=== PATIENT | female | born 1985 | race Caucasian/White ===

== ENCOUNTER 2020-09-28 13:48 | Emergency (ER) | payer SELFPAY ==
[2020-09-28] MEDS ORDERED: Sodium Chloride 0.9% 1,000 ML IV ONE (14:59)
[2020-09-28] MEDS ORDERED: Sodium Chloride 0.9% 10 ML Syringe FLUSH PRN ×2 (14:59→15:16)
--- NOTE | 2020-09-28 15:02 | EDM.PDOC ---
ED HPI GENERAL MEDICAL PROBLEM - General Chief Complaint: Respiratory Problem Stated Complaint: SHORTNESS OF BREATH Time Seen by Provider: 09/28/20 14:56 Source of Information: Reports: Patient, RN Notes Reviewed History Limitations: Reports: No Limitations - History of Present Illness INITIAL COMMENTS - FREE TEXT/NARRATIVE: 34-year-old female presents emergency department a complaint of shortness of breath and palpitations, she is postop approximately 11 days gastric bypass which was done in [place] on September 17 initially stayed 4 days after surgery and then flew home, she started feeling short of breath about 2 days prior with palpitations, no fevers no nausea vomiting no chest pain - Related Data Allergies Allergy/AdvReac Type Severity Reaction Status Date / Time No Known Allergies Allergy Verified 09/28/20 14:18 Home Meds: Home Meds Omeprazole 20 mg PO BID 09/28/20 [History] Past Medical History - Past Surgical History GI Surgical History: Reports: Bariatric Procedure Social & Family History - Tobacco Use Tobacco Use Status *Q: Never Tobacco User Second Hand Smoke Exposure: No - Caffeine Use Caffeine Use: Reports: None - Recreational Drug Use Recreational Drug Use: No ED ROS GENERAL - Review of Systems Review Of Systems: See Below Constitutional: Reports: No Symptoms HEENT: Reports: No Symptoms Respiratory: Reports: Shortness of Breath Cardiovascular: Reports: Dyspnea on Exertion, Palpitations GI/Abdominal: Reports: No Symptoms ED EXAM, GENERAL - Physical Exam Exam: See Below Exam Limited By: No Limitations General Appearance: Alert, WD/WN, No Apparent Distress Respiratory/Chest: No Respiratory Distress, Lungs Clear, Normal Breath Sounds, No Accessory Muscle Use, Chest Non-Tender Cardiovascular: No Murmur, Tachycardia GI/Abdominal: Soft, Non-Tender Extremities: No Pedal Edema Course - Vital Signs Last Recorded V/S: Last Vital Signs Temp 97.0 F 09/28/20 14:27 Pulse 115 H 09/28/20 15:21 Resp 15 09/28/20 15:21 BP 122/80 09/28/20 15:21 Pulse Ox 98 09/28/20 15:21 - Orders/Labs/Meds Orders: Active Orders 24 hr Category Date Time Status EKG Documentation Completion [RC] ASDIRECTED Care 09/28/20 15:00 Active Peripheral IV Care [RC] . DIRECTED Care 09/28/20 14:59 Active Iopamidol [Isovue-370 (76%)] Med 09/28/20 15:45 Active 100 ml IV . DIRECTED Sodium Chloride 0.9% [Normal Saline] 1,000 ml Med 09/28/20 14:59 Active IV ASDIRECTED Sodium Chloride 0.9% [Saline Flush] Med 09/28/20 14:59 Active 10 ml FLUSH ASDIRECTED PRN Sodium Chloride 0.9% [Saline Flush] Med 09/28/20 15:16 Active 10 ml FLUSH ONETIME PRN Peripheral IV Insertion Adult [OM.PC] Urgent Oth 09/28/20 14:59 Ordered EKG 12 Lead [EK] Urgent Ther 09/28/20 14:59 Ordered Medication Orders Sodium Chloride (Normal Saline) 1,000 mls @ 500 mls/hr IV ASDIRECTED ONE Stop: 09/28/20 16:58 Last Admin: 09/28/20 15:33 Dose: 500 mls/hr Documented by: PERRY Iopamidol (Isovue-370 (76%)) 100 ml IV . DIRECTED DENNY Last Admin: 09/28/20 15:37 Dose: 100 ml Documented by: [email or web address] Sodium Chloride (Saline Flush) 10 ml FLUSH ASDIRECTED PRN PRN Reason: Keep Vein Open Last Admin: 09/28/20 15:34 Dose: 10 ml Documented by: HENRKYL Sodium Chloride (Saline Flush) 10 ml FLUSH ONETIME PRN PRN Reason: PER RADIOLOGY PROTOCOL Labs: Laboratory Tests 09/28/20 09/28/20 Range/Units 15:14 15:14 WBC 7.5 (4.5-11.0) K/uL RBC 5.83 H (3.30-5.50) M/uL Hgb 16.3 H (12.0-15.0) g/dL Hct 49.5 H (36.0-48.0) % MCV 85 (80-98) fL MCH 28 (27-31) pg MCHC 33 (32-36) % Plt Count 232 (150-400) K/uL Neut % (Auto) 64 (36-66) % Lymph % (Auto) 18 L (24-44) % [place] % (Auto) 10 H (2-6) % Eos % (Auto) 7 H (2-4) % Baso % (Auto) 1 (0-1) % Sodium 136 L (140-148) mmol/L Potassium 3.9 (3.6-5.2) mmol/L Chloride 103 (100-108) mmol/L Carbon Dioxide 13 L (21-32) mmol/L Anion Gap 23.9 H (5.0-14.0) mmol/L BUN 11 (7-18) mg/dL Creatinine 0.7 (0.6-1.0) mg/dL Est Cr Clr Drug Dosing 107.01 mL/min Estimated GFR (MDRD) > 60 (>60) Glucose 78 (74-106) mg/dL Calcium 9.2 (8.5-10.1) mg/dL Total Bilirubin 0.4 (0.2-1.0) mg/dL AST 14 L (15-37) U/L ALT 32 (12-78) U/L Alkaline Phosphatase 67 (46-116) U/L Troponin I < 0.017 (0.000-0.056) ng/mL Total Protein 7.9 (6.4-8.2) g/dL Albumin 3.9 (3.4-5.0) g/dL Globulin 4.0 H (2.3-3.5) g/dL Albumin/Globulin Ratio 1.0 L (1.2-2.2) Meds: Medications Generic Name Dose Route Start Last Admin Trade Name Freq PRN Reason Stop Dose Admin Sodium Chloride 1,000 mls @ 500 mls/hr 09/28/20 14:59 09/28/20 15:33 Normal Saline IV 09/28/20 16:58 500 mls/hr ASDIRECTED ONE Administration Iopamidol 100 ml 09/28/20 15:45 09/28/20 15:37 Isovue-370 (76%) IV 100 ml . DIRECTED DENNY Administration Sodium Chloride 10 ml 09/28/20 14:59 09/28/20 15:34 Saline Flush FLUSH 10 ml ASDIRECTED PRN Administration Keep Vein Open Sodium Chloride 10 ml 09/28/20 15:16 Saline Flush FLUSH ONETIME PRN PER RADIOLOGY PROTOCOL Discontinued Medications Generic Name Dose Route Start Last Admin Trade Name Freq PRN Reason Stop Dose Admin Sodium Chloride 90 mls @ 3 mls/sec 09/28/20 15:16 Normal Saline IV 09/28/20 15:17 ONETIME ONE Iopamidol 85 ml 09/28/20 15:16 Isovue-300 (61%) IV . DIRECTED PRN RADIOLOGY EXAM Departure - Departure Time of Disposition: 16:19 Disposition: Home, Self-Care 01 Condition: Fair Clinical Impression: Dyspnea Qualifiers: Dyspnea type: other forms of dyspnea Qualified Code(s): R06.09 - Other forms of dyspnea - Discharge Information Instructions: Shortness of Breath, Adult, [id number] Referrals: PCP,None [Primary Care Provider] - Forms: ED Department Discharge Additional Instructions: Please followup with your primary care provider in 3-5 days if not better, please call return to the emergency department with worsening of symptoms. Sepsis Event Note (ED) - Evaluation Sepsis Screening Result: No Definite Risk - Focused Exam Vital Signs: Vital Signs Temp Pulse Resp BP Pulse Ox 09/28/20 15:21 115 H 15 122/80 98 09/28/20 14:27 97.0 F 122 H 16 123/75 99 09/28/20 14:14 97.0 F 122 H 16 123/75 99 - My Orders Last 24 Hours: My Active Orders 09/28/20 14:59 Peripheral IV Care [RC] . DIRECTED Sodium Chloride 0.9% [Normal Saline] 1,000 ml IV ASDIRECTED Sodium Chloride 0.9% [Saline Flush] 10 ml FLUSH ASDIRECTED PRN Peripheral IV Insertion Adult [OM.PC] Urgent EKG 12 Lead [EK] Urgent 09/28/20 15:00 EKG Documentation Completion [RC] ASDIRECTED 09/28/20 15:16 Sodium Chloride 0.9% [Saline Flush] 10 ml FLUSH ONETIME PRN 09/28/20 15:45 Iopamidol [Isovue-370 (76%)] 100 ml IV . DIRECTED - Assessment/Plan Last 24 Hours: My Active Orders 09/28/20 14:59 Peripheral IV Care [RC] . DIRECTED Sodium Chloride 0.9% [Normal Saline] 1,000 ml IV ASDIRECTED Sodium Chloride 0.9% [Saline Flush] 10 ml FLUSH ASDIRECTED PRN Peripheral IV Insertion Adult [OM.PC] Urgent EKG 12 Lead [EK] Urgent 09/28/20 15:00 EKG Documentation Completion [RC] ASDIRECTED 09/28/20 15:16 Sodium Chloride 0.9% [Saline Flush] 10 ml FLUSH ONETIME PRN 09/28/20 15:45 Iopamidol [Isovue-370 (76%)] 100 ml IV . DIRECTED Plan: Assessment Acuity = acute Site and laterality = dyspnea and tachycardia Etiology = probably related to anxiety Manifestations = none Location of injury = Home Lab values = CBC, CMP, troponin within normal limits CT scan of the chest reveals no pulmonary embolism Plan Heart rate did return to normal range, have her follow-up with primary care as needed This note was dictated using [employer] voice recognition software please call with any questions on syntax or grammar.
[2020-09-28] MEDS ORDERED: Iopamidol 612 MG/ML 100 ML Bottle IV PRN (15:16)
[2020-09-28] MEDS ORDERED: Sodium Chloride 0.9% 90 ML IV ONE (15:16)
[2020-09-28] MEDS ORDERED: Iopamidol 755 Mg/ML 100 ML Bottle IV SCH (15:45)
--- NOTE | 2020-09-28 15:50 | CRLCT ---
Indication: Shortness of breath Technique: Volumetric multidetector CT images of the chest were obtained after the administration of IV contrast. 100 cc Isovue 370 low osmolar Comparison: None available. Findings: The thoracic inlet and thyroid gland are unremarkable. The thoracic aorta is nonaneurysmal. There is no central filling defect to suggest pulmonary embolism. There is no mediastinal, hilar or axillary adenopathy. The trachea and bronchi are well aerated without significant bronchiectasis. There is no focal consolidation, effusion or pneumothorax. There is no evidence of pulmonary mass or suspicious pulmonary nodule. The partially visualized upper abdominal viscera are within normal limits. The thoracic vertebral body heights remain intact alignment without significant degenerative change or acute osseous abnormality. Impression: No acute cardiopulmonary abnormality. No evidence of pulmonary embolus. Please note that all CT scans at this facility use dose modulation, iterative reconstruction, and/or weight-based dosing when appropriate to reduce radiation dose to as low as reasonably achievable. Dictated by David Agee MD @ Sep 28 2020 3:43PM Signed by Dr. David Agee @ Sep 28 2020 3:48PM
== END 2020-09-28 18:01 | disposition home or self-care (01) ==
LOC: JP.ED 13:48
DX: R06.02 Shortness of breath (principal); Z79.899 Other long term (current) drug therapy
CPT/HCPCS: 36415; 71275; 80053; 84484; 85025; 93005; 93010; 99285; J7030; Q9967